=== PATIENT | female | born 1950 | race Two or more races ===

== ENCOUNTER 2024-10-05 08:25 | Day surgery (SDC) | payer MEDICARE ==
[~2024-10-05 08:25] MED LIST: ASPIRIN 81 LOW81 MG PO; CAL-CITRATE PO; COQ10200 MG PO; FISH OIL1000 M1 PO; FISH OIL1000 M2; LIPITOR10 M1 PO; LIPITOR20 M1 PO; MAGNESIUM64 MG PO; OSTEO BI-FLEX J1 TAB PO; OSTEO BI-FLEX JOINT; [UNRECOGNIZED DRUG - OTHER]
[2024-10-05] MEDS ORDERED: LACTATED RINGER'S 1,000 ML IV ONE (08:31)
[2024-10-05] MEDS ORDERED: FAMOTIDINE 10MG/ML 2ML SDV IV ONE (08:31)
[2024-10-05 11:46] VITALS: BP 117/58
[2024-10-05] MEDS ORDERED: PROPOFOL 200 MG/20 ML VIAL IV ONE (14:46)
[2024-10-05] MEDS ORDERED: GLYCOPYRROLATE 0.2 MG/ML IV ONE (14:46)
[2024-10-05] MEDS ORDERED: LIDOCAINE HCL 2% 2ML SDV IV ONE (14:46)
== END 2024-10-05 11:56 | disposition home or self-care (01) ==
LOC: ENDO 08:25
PROVIDERS: ATTEND Surgery
PROC: 0DJD8ZZ Inspection of Lower Intestinal Tract, Via Natural or Artificial Opening Endoscopic (ICD-10-PCS; principal; 2024-10-05)
DX: Z12.11 Encounter for screening for malignant neoplasm of colon (principal); K57.30 Diverticulosis of large intestine without perforation or abscess without bleeding; K64.8 Other hemorrhoids
CPT/HCPCS: J1596